=== PATIENT | male | born 1960 | race Caucasian/White ===

== ENCOUNTER 2020-08-23 08:43 | Day surgery (SDC) | payer OTHER ==
[~2020-08-23] VITALS: Ht 172.7 cm; Wt 93.4 kg
[2020-08-23 09:29] LABS: BASOPHILS 0.7 % (0-2); EOSINOPHILS 3.4 % (0-7); HEMATOCRIT 43.9 % (42.0-54.0); HEMOGLOBIN 15.3 g/dL (13.5-17.5); IMMATURE GRANULOCYTES 0.3 % (0-5); LYMPHOCYTES 30.1 % (15-50); MCH 32.1 pg (26.0-34.0); MCHC 34.9 g/dL (31.0-37.0); MCV 92.2 fL (80.0-100.0); MEAN PLATELET VOLUME 9.3 fL (7.4-10.4); MONOCYTES 9.5 % (2-11); PLATELET COUNT 182 10x3/uL (130-400); RBC 4.76 10x6/uL (4.20-6.10); RDW 12.6 % (11.5-14.5); WBC 7.1 10x3/uL (4.8-10.8)
[2020-08-23 09:59] LABS: CALC OSMOLALITY 276 mosm/kg (275-300); CALCIUM 9.1 mg/dL (8.5-10.1); CARBON DIOXIDE 25.9 mmol/L (21.0-32.0); CHLORIDE - SERUM 104 mmol/L (98-107); CREATININE - SERUM 0.9 mg/dL (0.6-1.3); GLUCOSE 111 mg/dL (74-106); POTASSIUM - SERUM 4.3 mmol/L (3.5-5.1); SODIUM 137 mmol/L (136-145); UREA NITROGEN 17 mg/dL (7-18); eGFR NON AFRICAN AMERICAN > 90 mL/min (90-120)
[2020-08-23 10:13] VITALS: BP 179/81; Ht 172.7 cm; Wt 93.4 kg
[2020-08-23] MEDS ORDERED: HYDROCODON-ACE1 EA10 PO (12:33)
--- NOTE | 2020-08-23 14:50 | NUR ---
1330 MEDICATED FOR PAIN. 1400 VOIDED 1405 IV REMOVED AND PRESSURE HELD. INSTRUCTIONS GIVEN AND DRESSING REINFORCED TO ABD. MODERATED AMT OF DRAINAGE.
--- NOTE | 2020-08-28 09:49 | OP ---
PATIENT NAME: RICARDA ANDERSON MEDICAL RECORD: [id number] :58 [facility]ATION:[facility] AD[facility]ION DATE: SURGEON: DONELL MCMANUS MD DATE OF OPERATION: 08/23/2020 PREOPERATIVE DIAGNOSIS: Ventral hernia. POSTOPERATIVE DIAGNOSIS: Ventral hernia. PROCEDURE: Ventral hernia repair. SURGEON: Donell Mcmanus MD REPORT OF PROCEDURE: The patient's abdomen was prepped and draped in sterile fashion. A cutdown was made in the inferior aspect of the umbilicus in a semicircular fashion. Electrocautery was used to dissect through the subcutaneous tissues. We ended up elevating the umbilicus in order to evaluate the fascia completely. We are able to find an opening in the fascia just to the right of the umbilicus. Electrocautery was used to dissect around this tissue and we eventually took the hernia sac off down to the fascial edges. The fascial defect was about 1.5 cm wide and about 1 cm long. The overlying fatty tissue was cleared off the fascia and we then approximated the fascia transversely using interrupted 0 Prolenes times 4. The wounds were irrigated out with normal saline. The umbilicus was tacked down with a single interrupted 3-0 Vicryl and the subcutaneous tissues were reapproximated with multiple interrupted 3-0 Vicryl. The skin was closed with running subcutaneous 5-0 Monocryl and 10 mL of 0.25% Marcaine plain were infused into the surrounding tissues. The wound was then dressed appropriately. COMPLICATIONS: None. CONDITION: Stable. ANESTHESIA: General endotracheal and local. BLOOD LOSS: Minimal. TRANSINT:[id number] Voice Confirmation ID: [id number] DOCUMENT ID: [id number] DONELL MCMANUS MD at 0949 CC: AMANDA ACEVES DO [id number] DICTATION DATE: 08/23/20 1236 [employer] MANAGER: 08/23/20 1401 [facility] 08/23/20 [id number] [place] [id number]
== END 2020-08-23 14:40 | disposition home or self-care (01) ==
LOC: D.PAN 08:43 → D.OPS 11:15 → D.PAN 14:40
PROVIDERS: Anesthesiology; ATTEND Surgery
DX: K43.9 Ventral hernia without obstruction or gangrene (principal)